=== PATIENT | male | born 1975 | race Caucasian/White ===

== ENCOUNTER → 2017-07-16 15:56 | Outpatient (CLI) | payer BC, SELFPAY ==
--- NOTE | 2017-07-16 16:17 | XR_ITS ---
XR chest 2V HISTORY: ITS.REASON: CHEST PAIN,ELEVATED BLOOD PRESSURE ORDERING PHYSICIAN: Noel Smith MD PATIENT AGE: 41 years COMPARISON: None available FINDINGS: The cardiomediastinal silhouette and pulmonary vascularity are within normal limits. The lungs are clear without infiltrates, suspicious nodules, or pleural effusions. An 8 mm nodules present in the right upper lobe medially at the first interspace possibly related to a granuloma and may be confirmed with follow-up. There is a 4 mm nodular opacity in the left upper lobe overlying the third rib. No acute bony abnormalities. IMPRESSION: No acute finding. Bilateral upper lobe nodular opacities. Consider follow-up to confirm stability
[2017-07-16 16:18] LABS: Basophils # 0.1 K/mm3 (0-0.2); Basophils % 0.6 % (0.1-2.0); Eosinophils # 0.5 K/mm3 (0.0-0.4); Eosinophils % 4.2 % (0.1-12.0); Hematocrit 42.3 % (42.0-52.0); Hemoglobin 14.7 g/dL (14.1-18.0); Mean Corpuscular HGB Conc 34.7 g/dL (31.8-35.4); Mean Corpuscular Hemoglobin 30.9 pg (27.0-31.2); Mean Platelet Volume 7.8 fl (7.4-10.4); Monocytes # 0.6 K/mm3 (0.1-1.0); Monocytes % 5.5 % (1.7-9.3); Neutrophils # 6.6 K/mm3 (1.8-7.8); Neutrophils % 61.8 % (37.0-80.0); Platelet Count 196 K/mm3 (142-424); Red Blood Count 4.76 M/mm3 (4.60-6.20); Red Cell Distribution Width 13.2 % (11.5-17.5); White Blood Count 10.7 K/mm3 (4.8-10.8)
[2017-07-16 21:16] LABS: Troponin I < 0.02 ng/ml (0.00-0.06)
[2017-07-16 21:19] LABS: Alanine Aminotransferase 35 U/L (12-78); Albumin Level 3.7 gm/dL (3.4-5.0); Albumin/Globulin Ratio 1.2 (1.1-1.8); Alkaline Phosphatase 78 U/L (46-116); Anion Gap 12.6 mEq/L (5-15); Bilirubin,Total 0.1 mg/dL (0.2-1.0); Blood Urea Nitrogen 15 mg/dL (7-18); Calcium 8.6 mg/dL (8.5-10.1); Carbon Dioxide 28 mmol/L (21.0-32.0); Chloride 104 mmol/L (98-107); Chol/HDL Ratio 8.7 (1-3.5); Cholesterol 236 mg/dL (140-200); Creatine Kinase 111 U/L (39-308); Estimated Glomerular Filt Rate 82 ml/min (>60); GFR (African American) 100 ML/MIN (>60); Globulin 3.2 gm/dl (1.3-3.2); HDL Cholesterol 27 mg/dL (27-67); Sodium 140 mmol/L (136-145); Thyroid Stimulating Hormone 1.64 uIU/ml (0.358-3.740); Total Protein,Serum 6.9 gm/dL (6.4-8.2); Uric Acid 4.8 mg/dL (2.6-7.2)
[2017-07-16 22:29] LABS: Glucose 95 mg/dL (74-106)
[2017-07-16 22:32] LABS: Aspartate Amino Transferase 11 U/L (15-37); CKMB Relative Index 0.5 U/L (0-4.0); Creatine Kinase MB < 0.5 mg/ml (0.0-3.6); Triglycerides 656 mg/dL (30-200)
[2017-07-16 22:33] LABS: Potassium 4.6 mmoL/L (3.5-5.1)
== END ==
PROVIDERS: PCP Family Medicine; Visit Provider Family Medicine
DX: R03.0 Elevated blood-pressure reading, without diagnosis of hypertension (principal); R07.9 Chest pain, unspecified
CPT/HCPCS: 36415; 71046; 80053; 80061; 82550; 82553; 84443; 84484; 84550; 85025; 93005

== ENCOUNTER → 2019-08-07 12:00 | Outpatient (CLI) | payer BC, SELFPAY ==
--- NOTE | 2019-08-07 12:11 | XR_ITS ---
PROCEDURE: XR ANKLE LT MIN 3V CLINICAL INDICATION: ACUTE LEFT ANKLE PAIN COMPARISON: No exams were available for comparison FINDINGS: The medial and lateral malleolus appear intact. There is no significant soft tissue swelling. Ankle mortise is normal. There is a tiny spur of the calcaneus at the insertion of the plantar tendon. IMPRESSION: No acute findings. Dictated by: Dr. Ori Pinon MD 08/07/2019 13:[address] Ori Pinon MD in [place] 08/07/2019 13:45
== END ==
PROVIDERS: PCP Family Medicine; Visit Provider Family Medicine
DX: M25.572 Pain in left ankle and joints of left foot (principal)
CPT/HCPCS: 73610

== ENCOUNTER → 2021-06-10 08:44 | Outpatient (CLI) | payer SELFPAY ==
[2021-06-10 09:17] LABS: Basophils # 0.1 K/mm3 (0-0.2); Eosinophils # 0.4 K/mm3 (0.0-0.4); Eosinophils % 6.5 % (0.1-12.0); Hemoglobin 14.7 g/dL (14.1-18.0); Lymphocytes # 1.5 K/mm3 (0.7-4.5); Lymphocytes % 24.9 % (10-50); Mean Corpuscular HGB Conc 32.7 g/dL (31.8-35.4); Mean Corpuscular Hemoglobin 30.4 pg (27.0-31.2); Mean Corpuscular Volume 92.9 fl (80-94); Mean Platelet Volume 8.2 fl (7.4-10.4); Monocytes # 0.4 K/mm3 (0.1-1.0); Monocytes % 7.2 % (1.7-9.3); Neutrophils # 3.6 K/mm3 (1.8-7.8); Neutrophils % 60.3 % (37.0-80.0); Platelet Count 206 K/mm3 (142-424); Red Blood Count 4.84 M/mm3 (4.60-6.20); Red Cell Distribution Width 13.7 % (11.5-17.5)
[2021-06-10 11:12] LABS: Alanine Aminotransferase 23 U/L (12-78); Albumin Level 4.4 g/dl (3.5-5.0); Albumin/Globulin Ratio 1.8 (1.1-1.8); Alkaline Phosphatase 52 U/L (38-126); Anion Gap 9.8 mEq/L (5-15); Aspartate Amino Transferase 19 U/L (17-59); Bilirubin,Total 0.4 mg/dl (0.2-1.3); Blood Urea Nitrogen 21 mg/dl (9-20); Calcium 9.5 mg/dl (8.4-10.2); Carbon Dioxide 30 mmol/L (22.0-30.0); Chloride 103 mmol/L (98-107); Chol/HDL Ratio 5.3 (1-3.5); Cholesterol 180 mg/dl (140-200); Estimated Glomerular Filt Rate 72 ml/min (>60); GFR (African American) 88 ML/MIN (>60); Globulin 2.4 g/dL (1.3-3.2); Glucose 88 mg/dl (74-100); HDL Cholesterol 34 mg/dl (40-60); Potassium 4.8 mmoL/L (3.5-5.1); Sodium 138 mmol/L (136-145); Total Protein,Serum 6.8 g/dl (6.3-8.2); Triglycerides 113 mg/dl (30-150); VLDL Cholesterol 23 mg/dL (0-40)
[2021-06-10 11:23] LABS: Direct LDL Cholesterol 117.84 mg/dL (100-129)
[2021-06-10 11:42] LABS: Thyroid Stimulating Hormone 1.83 uIU/mL (0.465-4.68)
[2021-06-10 14:38] LABS: Hemoglobin A1C 5.3 % (4.0-6.0)
== END ==
PROVIDERS: Visit Provider Family Medicine
DX: I10 Essential (primary) hypertension (principal); E78.5 Hyperlipidemia, unspecified; L74.9 Eccrine sweat disorder, unspecified
CPT/HCPCS: 36415; 80053; 80061; 83036; 84443; 85025

== ENCOUNTER 2024-08-03 14:04 | Outpatient (CLI) | payer BC, SELFPAY ==
[2024-08-03 22:22] LABS: Coronavirus 19, PCR Not Detected (NotDetected); Influenza B, PCR Not Detected (NotDetected)
[2024-08-04 02:14] LABS: Influenza A, PCR Detected (NotDetected)
== END 2024-08-03 23:59 | disposition home or self-care (01) ==
LOC: LAB.DROPOF 08-05 13:37
PROVIDERS: PCP Student in an Organized Health Care Education/Training Program; Visit Provider Student in an Organized Health Care Education/Training Program
DX: R50.9 Fever, unspecified (principal); R05.9 Cough, unspecified; R09.82 Postnasal drip
CPT/HCPCS: 87636

== ENCOUNTER 2024-11-20 16:40 | Outpatient (CLI) | payer BC, SELFPAY ==
--- OUTSIDE RECORDS SUMMARY | 2024-07-10 11:45 | XMS_ITS ---
Author Organization [facility] Address [address] [facility] [address] [place] [id number] Care Team Providers Care Property Developer Name Role Phone Ibis Paniagua Unavailable [phone] Allergies No Known Allergies REASON FOR VISIT BUG BITES [POSS Medications Medication SIG (Take, Route, Fr equency, Duration) Notes Start Date End Date Status Bactrim DS 800-160 MG 1 tablet Orally Tw o times a day for 10 day(s) 07/10/2024 Active Medrol 4 MG as directed orally d aily for 6 days 07/10/2024 Active Vital Signs Blood pressure systolic 130 mm Hg 07/10/19 25 Blood pressure diastolic 80 mm Hg 025 Heart Rate 78 /min 07/10/2024 Height 71 in 07/10/2024 Weight 247.6 lbs 07/10/2024 BMI 34.53 kg/m2 07/10/2024 Encounters Encounter Location Date Provider Diagnosis Ron [address] [facility] [address] [place] [id number] 07/10/2024 Ibis Paniagua Bug bite with infection, initial encounter W57.XXXA and Acute cellulitis L03.90 Assessments Encounter Date Diagnosis (ICD Code) Assessment Notes Treatment Notes Treatment Clinical Notes Section Notes 07/10/2024 Bug bite with infection, initial encounter (ICD-10 - W57.XXXA) 07/10/2024 Acute cellulitis (ICD-10 - L03.90) Plan Of Treatment Medication Medication Name Sig Start Date Stop Date Notes Bactrim DS 800-160 MG 1 tablet Orally Tw o times a day for 10 day(s) 07/10/2024 Medrol 4 MG as directed orally daily for 6 days 07/10/2024 Next Appt Details Follow Up: prn, Reason: Provider Name:Noel Perry ry, 11/20/2024 04:00:00 PM, [address], [address], [place], [id number], Progress Notes * FIDELINA SHEEHANDOB:1975 (49 yo M)Acc No.[id number]:07/10/2024 Progress Notes Patient: FIDELINA SALAS Provider: MARILU Salinas :1975 A ge:48 Y S ex:Male Date:07/10/2024 Address:[id number] Subjective: * Chief Complaints: * 1 . BUG BITES [POSS. * HPI: D ermatology: 48 year old male presents with c/o h/o insect bite P t sts he has bug bites or some kind of break out on his right arm, unde rt the armpit and across his chest. Pt sts they appeared 2 days ago, and sts he has had them before on the back of his right arm. Pt sts he did have a spider bite at work and ever since then he has gotten different bites all over.? * Medical History: H ypertension, Hyperlipidemia, Hypertriglyceridemia. * Surgical History: a ppendectomy 2004. * Family History: F ather: alive 76 yrs, diagnosed with Cancer, Hypertension, Heart Disease. M other: alive 79 yrs, diagnosed with Hypertension. P aternal Grand Father: . P aternal Grand Mother: alive. M aternal Grand Father: . M aternal Grand Mother: . 1 brother(s) , 1 sister(s) - healthy. 1 daughter(s) - healthy. . * Social History: C URRENT TOBACCO USE S moking Status: P atient does smoke, p acks per day: 1 ,?Since age of: 9 . C affeine: yes, frequency:10 cups approx.. Home smoke detector use: yes. Recreational drug use: no. Alcohol: No, Type: , Frequency: ,Years: , Determination:, occasional. * Medications: N one * Allergies: N .K.D.A. Objective: * Vitals: W t:247.6, Temp:97.6, BP:130/80, HR:78, O2 Sat:94% on RA, Nurse:elan, Ht: 71, BMI:34.53. * Examination: G eneral Examination: General Appearance: N AD. HEENT: u nremarkable. Oral cavity: n o lesions, mucosa moist and WNL, no erythema. Neck: s upple, no lymphadenopathy. Chest: n ormal shape and expansion. Heart: R SR. Lungs: c lear to auscultation. Skin: multiple bite lane on the right arm and axillary area, there is one bite sully in the center, the areas do have some brown crusting. ? Assessment: * Assessment: 1. A cute cellulitis - L03.90 (Primary) 2 . B ug bite with infection, initial encounter - W57.XXXA Plan: * Treatment: * Procedure Codes: 9 4760 PULSE OX * Follow Up: p rn * Billing Information: * Visit Code: 50831 Office Visit, Est Pt., Level 3. * Procedure Codes: 27763 PULSE OX. * Electronic signature of MARILU Sanches on 11/20/2024 at 04:41 PM EDT Sign off status: Pending * Provider: MARILU Salinas Date: 0 07/10/2024 Generated for Pedro robison/Alfredo/eTransmitting on: 0 11/20/2024 04:41 PM EDT History and Physical Notes * HPI (History of Present Illness) Category Sub-Category Detail Notes Category Not es Dermatology h/o insect bite Pt sts he has bu g bites or some kind of break out on his right arm, unde rt the armpit and across his chest. Pt sts they appeared 2 days ago, and sts he has had them before on the back of his right arm. Pt sts he did have a spider bite at work and ever since then he has gotten different bites all over Examination Category Sub-Category Detail Notes Category Not es General Examination HEENT: unremarkable Heart: RSR Lungs: clear to auscultatio n General Appearance: NAD Skin: multiple bite lane on the right arm and axillary area, there is one bite sully in the center, the areas do have some brown crusting Neck: supple, no lymphaden opathy Oral cavity: no lesions, mucosa m oist and WNL, no erythema Chest: normal shape and exp ansion
--- OUTSIDE RECORDS SUMMARY | 2024-11-20 16:42 | XMS_ITS | Patient Health Record ---
Author Organization [facility] Address [address] [place] [id number] Care Team Providers Care Braider Operator Name Role Phone Ibis Paniagua Unavailable [phone] Noel Smith Unavailable [phone] Allergies No Known Allergies Reason For Referral No Information Medications Medication SIG (Take, Route, Frequency, Duration) Notes Start Date End Date Status Triamcinolone Acetonide 0.1 % 1 application Externally twice a day As needed 11/20/2024 Active Immunizations Vaccine Route Administration Date Status Comme nts Tetanus Tdap-Adacel (over 7yrs) IM Intramuscular 01/30/2017 Administered Problems Problem Type SNOMED Code ICD Code Onset Dates Problem Status W/U Status Risk Notes Problem 53480025 Essential hypert ension (I10) Active confirmed Problem 624370979 Hypertriglycerid emia (E78.1) Active confirmed Problem 747805138 Malaise (R53.81) Active confirmed Problem 984782579 Mixed hyperlipid emia (E78.2) Active confirmed Problem 13461722 Acute suppurativ e otitis media of right ear without spontaneous rupture of tympanic membrane, recurrence not specified (H66.001) Active confirmed Problem 182895371 Blurred vision, bilateral (H53.8) Active confirmed Vital Signs Heart Rate 82 /min 11/20/2024 Blood pressure diastolic 74 mm Hg 11/20/2024 Height 71 in 11/20/2024 Blood pressure systolic 132 mm Hg 11/20/2024 Weight 244 lbs 11/20/2024 BMI 34.03 kg/m2 11/20/2024 Encounters Encounter Location Date Provider Diagnosis Ron [address] [facility] [address] [place] [id number] 07/10/2024 Ibis Paniagua Bug bite with infection, initial encounter W57.XXXA and Acute cellulitis L03.90 [facility] [address] [facility] [address] [place] [id number] 11/20/2024 Noel Smith Pain in right should er M25.511 and Rash R21 Assessments Encounter Date Diagnosis (ICD Code) Assessment Notes Treatment Notes Treatment Clinical Notes Section Notes 07/10/2024 Bug bite with infection, initial encounter (ICD-10 - W57.XXXA) 07/10/2024 Acute cellulitis (ICD-10 - L03.90) 11/20/2024 Rash (ICD-10 - R21) 11/20/2024 Pain in right shoulder (ICD-10 - M25.511) Plan Of Treatment Pending Test Test Name Order Date X ray : Shoulder, right 11/20/2024 H-ABG 06/06/2021 Next Appt Details Provider Name:Noel Morales Perry ry, 11/20/2024 04:00:00 PM, [address] [facility], [place], [id number], Insurance Providers Payer Name Payer Address Payer Phone Subscriber Number Group Number Insured Name Patient Relationship to Insured Coverage Start Date Coverage End Date [employer] [address] [place] [address] [id number] FIDELINA SHEEHAN Self - patient is the insured Medical (General) History Medical History History ICD Code Hypertension Hyperlipidemia Hypertriglyceridemia Surgical History Surgery Date(Month/Year) Appendectomy 2004
--- NOTE | 2024-11-20 16:49 | XR_ITS ---
PROCEDURE INFORMATION: Exam: XR Right Shoulder Exam date and time: 11/20/2024 4:51 PM Age: 49 years old Clinical indication: Pain; Shoulder; Right; Additional info: Pain in right shoulder. States HX of impingement TECHNIQUE: Imaging protocol: Radiologic exam of the right shoulder. Views: 2 or more views. COMPARISON: No relevant prior studies available. FINDINGS: Bones/joints: No acute fracture identified. Mild degenerative changes of the AC joint with inferior spurring. Soft tissues: Normal. IMPRESSION: Mild DJD. No acute abnormality.
== END 2024-11-20 23:59 | disposition home or self-care (01) ==
LOC: RAD 16:40
PROVIDERS: PCP Family Medicine; Visit Provider Family Medicine
DX: M19.011 Primary osteoarthritis, right shoulder (principal)
CPT/HCPCS: 73030